=== PATIENT | male | born 1980 | race Caucasian/White ===

== ENCOUNTER 2016-12-23 01:30 | Emergency (ER) | payer OTHER ==
[~2016-12-23] VITALS: Ht 154.9 cm; Wt 83.8 kg
[~2016-12-23 01:30] MED LIST: MAGN250T3 PO; NRN600 PO
[2016-12-23 01:46] VITALS: TEMP 37; Ht 154.9 cm; Wt 83.8 kg
[2016-12-23] MEDS ORDERED: MAGNESIUM SULFATE 1GM / D5W 1 GM BAG IV STA (01:53)
[2016-12-23] MEDS ORDERED: SODIUM CHLORIDE 0.9% 1000ML 2,000 ML IV STA (01:53)
[2016-12-23] MEDS ORDERED: DiphenhydrAMINE HCL 50 MG/ML VIAL IV STA (01:53)
[2016-12-23] MEDS ORDERED: ONDANSETRON INJ 2 MG/ML 2 ML VIAL IV STA (01:53)
[2016-12-23] MEDS ORDERED: HYDROmorphone INJ 1 MG/ML SYR IV STA (01:53)
--- NOTE | 2016-12-23 01:58 | EMERGENCY ROOM VISIT NOTE ---
History Report prepared by Delma: Hamilton Ji Under the Supervision of: Dr. Nico Lucas M.D. First contact with patient: 01:48 Chief Complaint: HEADACHE Stated Complaint: SEVERE MIGRAINE History of Present Illness The patient is a 36 year old male who presents to the Emergency Room with complaints of persistent headache for the past 48 hours. The patient complains of nausea, vomiting, and a bright white light in his right eye field. He notes that this headache feels like his previous headaches. He has been getting Botox treatments which help, but notes that he does get headaches when he is due for a new shot which he currently is. He denies weakness in his arms or legs, trauma , injury, or fever at this time. Source of History: patient Onset: 48 hours Position: head Timing: other (persistent) Associated Symptoms: + nausea, + vomiting, No fevers Note: Other associated symptom: bright white light in vision field. Denies: weakness in arms or legs, trauma, or injury Review of Systems See HPI for pertinent positives & negatives. A total of 10 systems reviewed and were otherwise negative. Past Medical & Surgical Medical Problems: (1) GERD (gastroesophageal reflux disease) (2) History of migraine (3) History of orthopedic surgery (4) History of stomach ulcers (5) Intractable abdominal pain (6) Multiple fractures (7) PVC (premature ventricular contraction) Surgical Problems: (1) History of orthopedic surgery Family History Diabetes mellitus FH: cancer Gallbladder disease Hypertension Social History Smoking Status: Never Smoker Alcohol Use: none Drug Use: none Marital Status: in relationship Housing Status: lives with significant other Occupation Status: employed Current/Historical Medications Scheduled Doxepin Hcl (Doxepin), 75 MG PO HS Gabapentin (Gabapentin), 600 MG PO QID Magnesium (Magnesium 250 mg), 250 MG PO DAILY Verapamil HCl (Verapamil HCl ER), 180 MG PO BID Scheduled PRN Alprazolam (Alprazolam), 0.5 MG PO BID PRN for Panic Attack Allergies Coded Allergies: Prochlorperazine (Verified Adverse Reaction, Unknown, "MAKES ME FREAK OUT ", 12/23/16) Physical Exam Vital Signs Date Time Temp Pulse Resp B/P Pulse Ox O2 Delivery O2 Flow Rate FiO2 12/23/16 04:07 75 18 149/71 98 12/23/16 03:06 78 18 150/88 100 Room Air 12/23/16 01:46 37.0 98 18 144/79 99 Room Air Physical Exam GENERAL: Patient is well appearing and in mild distress. HEAD: No acute trauma, normocephalic atraumatic ENT: Mucous membranes moist, no nasal congestion. EYES: Equal/Reactive Bilaterally, No scleral icterus, Normal ROM NECK: No nuchal rigidity, no meningismus, trachea is midline, full ROM LUNGS: No dyspnea. Clear to auscultation and equal bilaterally. No wheeze, no rhonchi. HEART: Regular rate and rhythm. No murmurs, rubs, gallops appreciated. ABDOMEN: Soft, nontender, bowel sounds positive, no masses appreciated, no peritonitis. BACK: No midline tenderness, no CVA tenderness EXTREMITIES: Normal motion all extremities, no cyanosis, no edema. NEUROLOGIC: Awake, Alert, Oriented, no acute motor or sensory deficits, no focal weakness, cranial nerves grossly intact. SKIN: No rash, no jaundice, no diaphoresis. Medical Decision & Procedures Medications Administered Medications (Trade) Dose Ordered Sig/Clay Route Start Time Stop Time Status Last Admin Dose Admin Sodium Chloride (Nss 1000ml) 2,000 ml @ 999 mls/hr Q2H1M STAT IV 12/23/16 01:53 12/23/16 03:53 DC 12/23/16 02:13 999 MLS/HR Magnesium Sulfate (Magnesium Sulfate) 1 gm NOW STAT IV 12/23/16 01:53 12/23/16 01:55 DC 12/23/16 02:11 1 GM Dexamethasone Sodium Phosphate (Decadron Inj) 10 mg NOW ONCE IV 12/23/16 02:00 12/23/16 02:01 DC 12/23/16 02:11 10 MG Hydromorphone HCl (Dilaudid Inj) 1 mg NOW STAT IV 12/23/16 01:53 12/23/16 01:56 DC 12/23/16 02:11 1 MG Ondansetron HCl (Zofran Inj) 4 mg NOW STAT IV 12/23/16 01:53 12/23/16 01:56 DC 12/23/16 02:11 4 MG Diphenhydramine HCl (Benadryl Inj) 50 mg NOW STAT IV 12/23/16 01:53 12/23/16 01:56 DC 12/23/16 02:11 50 MG Hydromorphone HCl (Dilaudid Inj) 2 mg NOW STAT IV 12/23/16 02:49 12/23/16 02:50 DC 12/23/16 03:01 2 MG Lorazepam (Ativan Inj) 1 mg NOW STAT IV 12/23/16 03:53 12/23/16 03:54 DC 12/23/16 04:01 1 MG ED Course 0152: The patient was evaluated in room B7. A complete history and physical exam was performed. 0153: Ordered Benadryl Inj 50 mg IV, Zofran Inj 4 mg IV, Dilaudid Inj 1 mg IV, Magnesium Sulfate 1 gm IV, NSS 2000 ml @ 999 mls/hr IV. 0200: Ordered Decadron Inj 10 mg IV. 0249: Ordered Dilaudid Inj 2 mg IV. 0352: At this time, I reevaluated the patient and he says his headache is improving. He is ready to go home and requested medications to help him get some more sleep tonight. 0353: Ordered Ativan Inj 1 mg IV. 0356: Reevaluated the patient. Discussed results and discharge instructions: He verbalized understanding and agreement. The patient is ready for discharge. Medical Decision Differential: Headache, Migraine, Cluster Headache, Seizure, Meningitis, Sinusitis, CO exposure, ICH/SAH, Infectious, Tumor, Sinus Thrombosis, Arterial Dissection, amongst other pathologies entertained. 36 yr old male arrives with complaint of his typical migraine symptoms. Admits that he is to have Botox injections in 36 hours. Given large doses of multiple medications which it appears he has many times before. Feeling improved and will try getting some sleep at home. He is awake, alert and oriented answering questions. Stable throughout ED stay. No evidence dissection, infection, co, bleed, tumor. No neuro deficits. Extensive work-ups in past. Impression Primary Impression: Headache Additional Impression: Migraine Scribe Attestation The scribe's documentation has been prepared under my direction and personally reviewed by me in its entirety. I confirm that the note above accurately reflects all work, treatment, procedures, and medical decision making performed by me. Departure Information Dispostion Home / Self-Care Referrals No Doctor, Assigned (PCP) Forms HOME CARE DOCUMENTATION FORM, IMPORTANT VISIT INFORMATION Patient Instructions ED Headache Migraine, My [facility] Problem Qualifiers Primary Impression: Headache Headache type: unspecified Headache chronicity pattern: acute headache Intractability: not intractable Qualified Codes: R51 - Headache Additional Impression: Migraine Migraine type: unspecified Status migrainosus presence: with status migrainosus Intractability: not intractable Qualified Codes: G43.901 - Migraine, unspecified, not intractable, with status migrainosus
[2016-12-23] MEDS ORDERED: DEXAMETHASONE SOD INJ 10 MG/ML VIAL IV ONE (02:00)
[2016-12-23] MEDS ORDERED: HYDROmorphone INJ 2 MG/ML SYR/VIAL IV STA (02:49)
[2016-12-23] MEDS ORDERED: LORAZEPAM 2 MG/ML 1 ML VIAL IV STA (03:53)
[2016-12-23 04:07] VITALS: BP 149/71; PULSE 75; O2SAT 98
[2017-01-03] MEDS ORDERED: ONDA4TAB10 SL (17:47)
== END 2016-12-23 04:07 | disposition home or self-care (01) ==
LOC: C.EDB 01:32
DX: G43.901 Migraine, unspecified, not intractable, with status migrainosus (principal); K21.9 Gastro-esophageal reflux disease without esophagitis; Z83.79 Family history of other diseases of the digestive system; Z79.899 Other long term (current) drug therapy

== ENCOUNTER 2017-01-02 00:39 | Emergency (ER) | payer OTHER ==
[~2017-01-02] VITALS: Ht 180.3 cm; Wt 82.4 kg
[~2017-01-02 00:39] MED LIST changes: -NRN600 PO
[2017-01-02 00:47] VITALS: TEMP 37; Ht 180.3 cm; Wt 82.4 kg
[2017-01-02] MEDS ORDERED: PROMETHAZINE HCL INJ 25 MG in SODIUM CHLORIDE 0.9% 50ML 50 ML IV STA (00:56)
[2017-01-02] MEDS ORDERED: SODIUM CHLORIDE 0.9% 1000ML 1,000 ML IV STA (00:56)
[2017-01-02] MEDS ORDERED: HYDROmorphone INJ 2 MG/ML SYR/VIAL IV STA ×2 (00:56→02:09)
[2017-01-02] MEDS ORDERED: MAGNESIUM SULFATE 1GM / D5W 1 GM BAG IV STA (00:56)
[2017-01-02] MEDS ORDERED: KETOROLAC TROMETHAMINE 30 MG/ML VIAL IV STA (00:56)
[2017-01-02] MEDS ORDERED: HYDROmorphone INJ 1 MG/ML SYR ONE ×2 (01:01→02:16)
[2017-01-02] MEDS ORDERED: MULT-506 PO (01:33)
[2017-01-02] MEDS ORDERED: LORAZEPAM 2 MG/ML 1 ML VIAL IV STA (02:09)
[2017-01-02] MEDS ORDERED: ONDANSETRON HOME PACK 4MG OD TAB PO ONE (02:45)
[2017-01-02 02:49] VITALS: BP 155/86; PULSE 97; O2SAT 96
--- NOTE | 2017-01-02 03:43 | EMERGENCY ROOM VISIT NOTE ---
History First contact with patient: 00:48 Chief Complaint: HEADACHE Stated Complaint: MIGRAINE SINCE SATURDAY History of Present Illness The patient is a 36 year old male who presents to the Emergency Room with complaints of migraine for the past 2 days described as throbbing, ranging in severity currently 8 out of 10 throughout the temporal region similar to prior. Patient receives Botox injection. He follows with Dr. Lombardo. Headache is similar to prior. Patient denies sudden onset of headache, fever, chills, neck stiffness, numbness, tingling, weakness, chest pain, dyspnea or any other medical complaints. Patient is well-known to this ER for frequent migraine visits. Review of Systems See HPI for pertinent positives & negatives. A total of 10 systems reviewed and were otherwise negative. Past Medical/Surgical History Medical Problems: (1) GERD (gastroesophageal reflux disease) (2) History of migraine (3) History of orthopedic surgery (4) History of stomach ulcers (5) Intractable abdominal pain (6) Multiple fractures (7) PVC (premature ventricular contraction) Surgical Problems: (1) History of orthopedic surgery Family History Diabetes mellitus FH: cancer Gallbladder disease Hypertension Social History Smoking Status: Never Smoker Alcohol Use: none Drug Use: none Marital Status: in relationship Housing Status: lives with significant other Occupation Status: employed Current/Historical Medications Scheduled Doxepin Hcl (Doxepin), 75 MG PO HS Multivitamin (Multivitamin), 1 TAB PO DAILY Verapamil HCl (Verapamil HCl ER), 180 MG PO BID Scheduled PRN Alprazolam (Alprazolam), 0.5 MG PO BID PRN for Panic Attack Allergies Coded Allergies: Tramadol (Unverified Allergy, Unknown, headache, 01/02/17) Prochlorperazine (Verified Adverse Reaction, Unknown, "MAKES ME FREAK OUT ", 01/02/17) Physical Exam Vital Signs Date Time Temp Pulse Resp B/P Pulse Ox O2 Delivery O2 Flow Rate FiO2 01/02/17 02:49 97 16 155/86 96 01/02/17 02:25 97 16 147/93 98 Room Air 01/02/17 00:47 37.0 122 18 134/83 95 Room Air Pain Rating (0-10): 4.0 Physical Exam VITALS: Vitals are noted on the nurse's note and reviewed by myself. Vital signs stable. GENERAL: Pleasant male, in no acute distress, nondiaphoretic, well-developed well-nourished. SKIN: The skin was without rashes, erythema, edema, or bruising. There is no tenting of the skin. Capillary reflex less than 2 seconds. HEAD: Normocephalic atraumatic. EARS: External auditory canals clear, tympanic membranes pearly sandoval without erythema or effusion bilaterally. EYES: Pupils equal round and reactive to light and accommodation. Conjunctivae without injection, sclerae without icterus. Extraocular movements intact. NOSE: Patent, turbinates without inflammation or discharge. No sinus tenderness. MOUTH: Mucous membranes moist. Pharynx without erythema or exudate. Uvula midline. Airway patent. Tongue does not deviate. NECK: Supple without nuchal rigidity. No lymphadenopathy. No thyromegaly. Cervical spine is nontender. No JVD. HEART: Regular rate and rhythm without murmurs gallops or rubs. LUNGS: Clear to auscultation bilaterally without wheezes, rales or rhonchi. No dullness to percussion. No retractions or accessory muscle use. ABDOMEN: Positive bowel sounds x 4. Normal tympanic percussion. Soft, nontender, without masses or organomegaly. Tucker sign negative. No guarding or rebound tenderness. MUSCULOSKELETAL: No muscle atrophy, erythema, or edema noted. NEURO: Patient was alert and oriented to person place and time. Normal sensation to light and sharp touch. No focal neurological deficits. Cranial nerves II through XII grossly intact. No pronator drift. Cerebellar exam intact Medical Decision & Procedures Medications Administered Medications (Trade) Dose Ordered Sig/Clay Route Start Time Stop Time Status Last Admin Dose Admin Magnesium Sulfate 1 gm 1 gm NOW STAT IV 01/02/17 00:56 01/02/17 00:58 DC 01/02/17 01:11 1 GM Promethazine HCl/ Sodium Chloride (Phenergan Inj/ Nss 50ml) 51 ml @ 204 mls/hr NOW STAT IV 01/02/17 00:56 01/02/17 01:10 DC 01/02/17 01:24 204 MLS/HR Ketorolac Tromethamine 30 mg 30 mg NOW STAT IV 01/02/17 00:56 01/02/17 00:58 DC 01/02/17 01:10 30 MG Sodium Chloride (Nss 1000ml) 1,000 ml @ 999 mls/hr Q1H1M STAT IV 01/02/17 00:56 01/02/17 01:56 DC 01/02/17 01:10 999 MLS/HR Hydromorphone HCl (Dilaudid Inj) 1 mg STK-MED ONCE .ROUTE 01/02/17 01:01 01/02/17 01:04 DC 01/02/17 01:11 1 MG Lorazepam (Ativan Inj) 1 mg NOW STAT IV 01/02/17 02:09 01/02/17 02:10 DC 01/02/17 02:21 1 MG Hydromorphone HCl (Dilaudid Inj) 1 mg STK-MED ONCE .ROUTE 01/02/17 02:16 01/02/17 02:18 DC 01/02/17 02:20 1 MG Ondansetron HCl (ZOFRAN ODT 4MG Home Pack) 1 homepack UD ONCE PO 01/02/17 02:45 01/02/17 02:46 DC 01/02/17 02:48 1 HOMEPACK ED Course Prior records/ancillary studies reviewed. Additional history obtained from family. Triage Nursing notes reviewed. The patient's history was concerning for headache. Differential diagnosis: Etiologies such as migraine headache, meningitis, sinusitis, CO exposure, ICH, SAH, infection, tumor, headache, sinus thrombosis, arterial dissection, as well as others were entertained. Physical examination findings: As above. Non-focal. ER treatment provided: Dilaudid, magnesium, Toradol per patient standard protocol On reassessment the patient felt better. Diagnostics interpreted by me: Deferred This appears to be consistent with migraine. Patient felt much better after being medicated as above. He was neurovascularly and neurologically intact. No deficits on exam. He was advised to follow-up with his neurologist in a few days or here in the ER sooner for headache, fevers, weakness, neck stiffness, worsening signs or symptoms or as needed.. By the evaluation outlined above emergent etiologies such as meningitis, sinusitis, CO exposure, ICH, SAH, infection, temporal arteritis, tumor, sinus thrombosis, arterial dissection, as well as others were deemed relatively unlikely. The pt informed about the findings as listed above. All questions were answered and pleased with the treatment. Return instructions were outlined and the patient was discharged in stable condition. Outpatient prescription management: zofran Referral: The patient was referred back to their primary care physician for follow-up in 2 to 3 days for a recheck of the current condition. Medical Decision As above Impression Primary Impression: Migraine Departure Information Dispostion Home / Self-Care Condition GOOD Referrals Fabienne Fuller PA-C (PCP) Forms HOME CARE DOCUMENTATION FORM, IMPORTANT VISIT INFORMATION Patient Instructions Headaches Migraines and Cluster, My [facility] Additional Instructions DO NOT drive, drink alcohol, operate machinery, or perform dangerous activities today. You were given medications in the ER that can affect your ability to safely function or operate a vehicle. Rest today in a quiet, peaceful, dark environment and get a full 8-10 hrs of sleep tonight. Avoid loud noises, smoke/smoking, alcohol, bright lights, stress, or physical exertion today to minimize the chance the headache may return. Continue current medications. Ibuprofen(Motrin, Advil) may be used for fever or pain. Use 600mg every six hours as needed. Take with food. Avoid using more than 2400mg in a 24 hour period. Do not use 2400mg per day for more than three consecutive days without physician direction. Prolonged inappropriate use can lead to stomach upset or ulcers. (AND/OR) Acetaminophen(Tylenol) may be used for fever or pain. Use 1000mg every six hours as needed. Avoid using more than 3000mg in a 24 hour period. Return to the ER for passing out, worsening headache, vision problems, neck stiffness/pain, fevers, vomiting, worsening of your condition, or as needed. Follow up with your primary physician and/or a neurologist in 2-3 days for a recheck of your current condition. Problem Qualifiers Primary Impression: Migraine Migraine type: without aura Status migrainosus presence: without status migrainosus Intractability: not intractable Qualified Codes: G43.009 - Migraine without aura, not intractable, without status migrainosus
[2017-01-02] MEDS ORDERED: VRPSR180 PO (17:40)
[2017-01-02] MEDS ORDERED: DXP/75 PO (17:40)
[2017-01-02] MEDS ORDERED: ALPR-411 PO (18:07)
[2017-01-02] MEDS ORDERED: MAGN250T9 PO (21:53)
[2017-01-02] MEDS ORDERED: ELET40TA PO (21:53)
[2017-01-02] MEDS ORDERED: LRS10 PO (21:53)
[2017-01-02] MEDS ORDERED: ONDA4TAB10 SL (21:55)
[2017-01-03] MEDS ORDERED: OSEL75CA12 PO (01:46)
[2017-01-03] MEDS ORDERED: ONDA4TAB10 SL (17:47)
== END 2017-01-02 02:50 | disposition home or self-care (01) ==
LOC: C.EDB 00:40 → C.EDA 02:50
DX: G43.909 Migraine, unspecified, not intractable, without status migrainosus (principal); K21.9 Gastro-esophageal reflux disease without esophagitis; Z87.81 Personal history of (healed) traumatic fracture; Z87.19 Personal history of other diseases of the digestive system; Z88.8 Allergy status to other drugs, medicaments and biological substances; Z83.3 Family history of diabetes mellitus; Z80.9 Family history of malignant neoplasm, unspecified; Z83.79 Family history of other diseases of the digestive system; Z82.49 Family history of ischemic heart disease and other diseases of the circulatory system

== ENCOUNTER 2017-01-02 21:09 | Observation (INO) | payer OTHER ==
[~2017-01-02] VITALS: Ht 180.3 cm; Wt 83.7 kg
[~2017-01-02 21:09] MED LIST changes: +ALPR-411 PO; +DXP/75 PO; +MULT-506 PO; +VRPSR180 PO
[2017-01-02] MEDS ORDERED: ONDANSETRON INJ 2 MG/ML 2 ML VIAL IV STA (21:51)
[2017-01-02] MEDS ORDERED: MAGNESIUM SULFATE 1GM / D5W 1 GM BAG IV STA (21:51)
[2017-01-02] MEDS ORDERED: HYDROmorphone INJ 1 MG/ML SYR IV STA ×2 (21:51→23:36)
[2017-01-02] MEDS ORDERED: CEFTRIAXONE SOD INJ 2,000 MG in DEXTROSE 5% 50ML 50 ML IV STA (21:51)
[2017-01-02] MEDS ORDERED: MAGN250T9 PO (21:53)
[2017-01-02] MEDS ORDERED: ELET40TA PO (21:53)
[2017-01-02] MEDS ORDERED: LRS10 PO (21:53)
[2017-01-02] MEDS ORDERED: ONDA4TAB10 SL (21:55)
[2017-01-02] MEDS ORDERED: DEXAMETHASONE SOD INJ 10 MG/ML VIAL IV ONE (22:00)
--- NOTE | 2017-01-02 22:20 | DIAGNOSTIC IMAGING REPORT ---
CHEST ONE VIEW PORTABLE HISTORY: Sepsis COMPARISON: Chest 06/05/2016. FINDINGS: The lungs are clear. Cardiac silhouette is normal in size. No pleural effusions. No pneumothorax. IMPRESSION: No acute process. Electronically signed by: Claudio Mccormack M.D. 01/02/2017 10:18 PM Dictated Date/Time: 01/02/2017 10:17 PM
[2017-01-02] MEDS ORDERED: SODIUM CHLORIDE 0.9% 1000ML 1,000 ML IV STA ×2 (22:27)
[2017-01-02] MEDS ORDERED: OSELTAMIVIR PHOSPHATE 75 MG CAP PO STA (22:44)
[2017-01-02 22:58] LABS: BASO % 0.4 %; BASO ABS # 0.01 K/uL (0-0.2); COMPLETE YES; LYMPH % 12.8 %; LYMPH ABS # 0.36 K/uL (1.2-3.4); MEAN CELL VOLUME 86.1 fL (80-100); MEAN CORPUSCULAR HEMOGLOBIN 31.6 pg (25-34); MEAN CORPUSCULAR HGB CONC 36.7 g/dl (32-36); MEAN PLATELET VOLUME 10.1 fL (7.4-10.4); MONO % 22.1 %; NEUT % 64.7 %; PLATELET COUNT 253 K/uL (130-400); RED BLOOD COUNT 4.53 M/uL (4.7-6.1); WHITE BLOOD COUNT 2.81 K/uL (4.8-10.8)
[2017-01-02 23:09] LABS: INR 1.1 (0.9-1.1); PARTIAL THROMBOPLASTIN RATIO 1.1; PROTHROMBIN TIME (PATIENT) 11.6 SECONDS (9.0-12.0)
[2017-01-02 23:13] LABS: BUN/CREATININE RATIO 10.6 (10-20); CALCIUM 8.8 mg/dl (8.5-10.1); POTASSIUM 3.6 mmol/L (3.5-5.1)
[2017-01-02 23:16] LABS: ALB/GLOB RATIO 1.2 (0.9-2)
[2017-01-02 23:58] LABS: LYME DISEASE AB IGG NEG (NEG); LYME DISEASE AB IGM NEG (NEG)
[2017-01-03] VITALS (8 sets, daily range): BP systolic 127–163; BP diastolic 67–83; PULSE 57–87; TEMP 36.5–37.2; O2SAT 94–99; Ht 180.3 cm; Wt 83.7 kg
[2017-01-03 00:37] LABS: MANUAL MICROSCOPIC REQUIRED? NO; REVIEW REQ? NO; URINE APPEARANCE CLEAR (CLEAR); URINE BILIRUBIN NEG (NEG); URINE COLOR YELLOW; URINE EPITHELIAL CELL AUTO 0-5 /lpf (0-5); URINE NITRITE NEG (NEG); URINE SPECIFIC GRAVITY 1.004 (1.000-1.030); UROBILINOGEN NEG (NEG); ZZUR CULT IF INDIC CLEAN CATCH NO
[2017-01-03 01:19] LABS: CSF APPEARANCE CLEAR; CSF COLOR COLORLESS; CSF XANTHOCHROMIC NO XANTHOCHROMIA
[2017-01-03 01:30] LABS: CSF CHEMISTRY TUBE # 2
[2017-01-03 01:37] LABS: CSF TOTAL PROTEIN 45.1 mg/dl (15.0-45.0)
[2017-01-03] MEDS ORDERED: OSEL75CA12 PO (01:46)
--- NOTE | 2017-01-03 01:46 | EMERGENCY ROOM VISIT NOTE ---
History First contact with patient: 21:47 Chief Complaint: HEADACHE Stated Complaint: WORSEING MIGRAINE FROM LAST ER VISIT History of Present Illness The patient is a 36 year old male who presents to the Emergency Room with complaints of migraine and now with neck pain for the past 2 days described as throbbing, ranging in severity currently 9 out of 10 throughout the temporal region has been increasing in severity. Patient was seen here last night who states he felt much better but then the headache came back again today. Patient receives Botox injection. He follows with Dr. Lombardo. Patient also complains of vision problems with his right eye, no injury to the eye. Patient denies sudden onset of headache, neck stiffness, loss of vision, numbness, tingling, weakness, chest pain, dyspnea or any other medical complaints. Patient is well-known to this ER for frequent migraine visits. Patient now complains of subjective fever and chills. MAXIMUM TEMPERATURE 101 at home. Review of Systems See HPI for pertinent positives & negatives. A total of 10 systems reviewed and were otherwise negative. Past Medical/Surgical History Medical Problems: (1) GERD (gastroesophageal reflux disease) (2) History of migraine (3) History of orthopedic surgery (4) History of stomach ulcers (5) Intractable abdominal pain (6) Multiple fractures (7) PVC (premature ventricular contraction) Surgical Problems: (1) History of orthopedic surgery Family History Diabetes mellitus FH: cancer Gallbladder disease Hypertension Social History Smoking Status: Never Smoker Alcohol Use: none Drug Use: none Marital Status: in relationship Housing Status: lives with significant other Occupation Status: employed Current/Historical Medications Scheduled Doxepin Hcl (Doxepin), 75 MG PO HS Magnesium (Magnesium), 250 MG PO DAILY Multivitamin (Multivitamin), 1 TAB PO DAILY Oseltamivir (Tamiflu), 75 MG PO BID Verapamil HCl (Verapamil HCl ER), 180 MG PO BID Scheduled PRN Alprazolam (Alprazolam), 0.5 MG PO BID PRN for Panic Attack Baclofen (Baclofen), 10 MG PO TID PRN for Back Pain Eletriptan Hydrobromide (Relpax), 40 MG PO UD PRN for Migraine Ondasetron Odt (Zofran Odt), 4 MG SL Q6H PRN for Nausea Allergies Coded Allergies: Tramadol (Unverified Allergy, Unknown, headache, 01/02/17) Prochlorperazine (Verified Adverse Reaction, Unknown, "MAKES ME FREAK OUT ", 01/02/17) Physical Exam Vital Signs Date Time Temp Pulse Resp B/P Pulse Ox O2 Delivery O2 Flow Rate FiO2 01/03/17 01:56 107 18 148/78 100 Room Air 01/03/17 01:19 81 18 145/76 95 Room Air 01/03/17 00:02 90 18 146/76 97 Room Air 01/02/17 22:30 95 18 156/89 95 Room Air 01/02/17 22:13 94 Room Air 01/02/17 21:48 108 18 153/102 97 Room Air 01/02/17 21:17 37.5 112 20 160/99 96 Room Air Right Eye Acuity: 20/200 Left Eye Acuity: 20/20 Physical Exam VITALS: Vitals are noted on the nurse's note and reviewed by myself. Vital signs stable. GENERAL: White male, in no acute distress, nondiaphoretic, well-developed well- nourished. SKIN: The skin was without rashes, erythema, edema, or bruising. There is no tenting of the skin. Capillary reflex less than 2 seconds. HEAD: Normocephalic atraumatic. EARS: External auditory canals clear, tympanic membranes pearly sandoval without erythema or effusion bilaterally. EYES: Pupils equal round and reactive to light and accommodation. Conjunctivae without injection, sclerae without icterus. Extraocular movements intact. NOSE: Patent, turbinates without inflammation or discharge. No sinus tenderness. MOUTH: Mucous membranes moist. Pharynx without erythema or exudate. Uvula midline. Airway patent. Tongue does not deviate. NECK: Supple without nuchal rigidity. No lymphadenopathy. No thyromegaly. Cervical spine is nontender. No JVD. HEART: Regular rate and rhythm without murmurs gallops or rubs. LUNGS: Clear to auscultation bilaterally without wheezes, rales or rhonchi. No dullness to percussion. No retractions or accessory muscle use. ABDOMEN: Positive bowel sounds x 4. Normal tympanic percussion. Soft, nontender, without masses or organomegaly. Tucker sign negative. No guarding or rebound tenderness. MUSCULOSKELETAL: No muscle atrophy, erythema, or edema noted. NEURO: Patient was alert and oriented to person place and time. Normal sensation to light and sharp touch. No focal neurological deficits. Cranial nerves II through XII grossly intact. No pronator drift. Cerebellar exam intact. 5 over 5 strength throughout Medical Decision & Procedures Laboratory Results 01/02/17 22:20 Red Blood Count 4.53, Mean Corpuscular Volume 86.1, Mean Corpuscular Hemoglobin 31.6, Mean Corpuscular Hemoglobin Concent 36.7, Mean Platelet Volume 10.1, Neutrophils (%) (Auto) 64.7, Lymphocytes (%) (Auto) 12.8, Monocytes (%) (Auto) 22.1, Eosinophils (%) (Auto) 0.0, Basophils (%) (Auto) 0.4, Neutrophils # (Auto ) 1.82, Lymphocytes # (Auto) 0.36, Monocytes # (Auto) 0.62, Eosinophils # (Auto ) 0.00, Basophils # (Auto) 0.01 01/02/17 22:20 Test 01/02/17 00:00 01/02/17 22:03 01/02/17 22:20 01/02/17 22:23 Urine Color YELLOW Urine Appearance CLEAR (CLEAR) Urine pH 6.0 (4.5-7.5) Urine Specific [place] 1.004 (1.000-1.030) Urine Protein NEG (NEG) Urine Glucose (UA) NEG (NEG) Urine Ketones NEG (NEG) Urine Occult Blood NEG (NEG) Urine Nitrite NEG (NEG) Urine Bilirubin NEG (NEG) Urine Urobilinogen NEG (NEG) Urine Leukocyte Esterase NEG (NEG) Urine WBC (Auto) 0 /hpf (0-5) Urine RBC (Auto) 0-4 /hpf (0-4) Urine Hyaline Casts (Auto) 0 /lpf (0-5) Urine Epithelial Cells (Auto) 0-5 /lpf (0-5) Urine Bacteria (Auto) NEG (NEG) Influenza Type A Antigen POS for Influ A (NEG) Influenza Type B Antigen Neg for Influ B (NEG) White Blood Count 2.81 K/uL (4.8-10.8) Red Blood Count 4.53 M/uL (4.7-6.1) Hemoglobin 14.3 g/dL (14.0-18.0) Hematocrit 39.0 % (42-52) Mean Corpuscular Volume 86.1 fL (80-100) Mean Corpuscular Hemoglobin 31.6 pg (25-34) Mean Corpuscular Hemoglobin Concent 36.7 g/dl (32-36) Platelet Count 253 K/uL (130-400) Mean Platelet Volume 10.1 fL (7.4-10.4) Neutrophils (%) (Auto) 64.7 % Lymphocytes (%) (Auto) 12.8 % Monocytes (%) (Auto) 22.1 % Eosinophils (%) (Auto) 0.0 % Basophils (%) (Auto) 0.4 % Neutrophils # (Auto) 1.82 K/uL (1.4-6.5) Lymphocytes # (Auto) 0.36 K/uL (1.2-3.4) Monocytes # (Auto) 0.62 K/uL (0.11-0.59) Eosinophils # (Auto) 0.00 K/uL (0-0.5) Basophils # (Auto) 0.01 K/uL (0-0.2) RDW Standard Deviation 39.6 fL (36.4-46.3) RDW Coefficient of Variation 12.5 % (11.5-14.5) Immature Granulocyte % (Auto) 0.0 % Immature Granulocyte # (Auto) 0.00 K/uL (0.00-0.02) Prothrombin Time 11.6 SECONDS (9.0-12.0) Prothromb Time International Ratio 1.1 (0.9-1.1) Activated Partial Thromboplast Time 28.9 SECONDS (21.0-31.0) Partial Thromboplastin Ratio 1.1 Anion Gap 7.0 mmol/L (3-11) Est Creatinine Clear Calc Drug Dose 107.7 ml/min Estimated GFR () 110.9 Estimated GFR (Non- 95.7 BUN/Creatinine Ratio 10.6 (10-20) Calcium Level 8.8 mg/dl (8.5-10.1) Total Bilirubin 0.4 mg/dl (0.2-1) Aspartate Amino Transf (AST/SGOT) 19 U/L (15-37) Alanine Aminotransferase (ALT/SGPT) 15 U/L (12-78) Alkaline Phosphatase 65 U/L (45-117) Total Protein 7.6 gm/dl (6.4-8.2) Albumin 4.2 gm/dl (3.4-5.0) Globulin 3.4 gm/dl (2.5-4.0) Albumin/Globulin Ratio 1.2 (0.9-2) Lyme Disease IgG Antibody NEG (NEG) Lyme Disease IgM Antibody NEG (NEG) Bedside Lactic Acid Venous 0.64 mmol/L (0.90-1.70) Test 01/02/17 23:59 CSF Color COLORLESS CSF Appearance CLEAR CSF WBC 2 /uL (0-5) CSF RBC 0 /uL (0) CSF Xanthrochromic NO XANTHOCHROMIA CSF Cell Count Tube # 4 CSF Chemistry Tube # 2 CSF Glucose 55 mg/dl (40-70) CSF Total Protein 45.1 mg/dl (15.0-45.0) Medications Administered Medications (Trade) Dose Ordered Sig/Clay Route Start Time Stop Time Status Last Admin Dose Admin Dexamethasone Sodium Phosphate 10 mg 10 mg NOW ONCE IV 01/02/17 22:00 01/02/17 22:01 DC 01/02/17 22:29 10 MG Ceftriaxone Sodium/Dextrose (Rocephin Inj/D5 50ml) 70 ml @ 100 mls/hr ONE STAT IV 01/02/17 21:51 01/02/17 22:32 DC 01/02/17 22:29 100 MLS/HR Hydromorphone HCl (Dilaudid Inj) 1 mg NOW STAT IV 01/02/17 21:51 01/02/17 21:54 DC 01/02/17 22:28 1 MG Magnesium Sulfate (Magnesium Sulfate) 1 gm NOW STAT IV 01/02/17 21:51 01/02/17 21:54 DC 01/02/17 23:12 1 GM Ondansetron HCl 4 mg 4 mg NOW STAT IV 01/02/17 21:51 01/02/17 21:54 DC 01/02/17 22:28 4 MG Sodium Chloride 1,000 ml @ 999 mls/hr Q1H1M STAT IV 01/02/17 22:27 01/02/17 23:27 DC 01/02/17 22:35 999 MLS/HR Sodium Chloride (Nss 1000ml) 1,000 ml @ 125 mls/hr Q8H STAT IV 01/02/17 22:27 01/03/17 06:26 01/02/17 22:27 125 MLS/HR Oseltamivir Phosphate (Tamiflu Cap) 75 mg NOW STAT PO 01/02/17 22:44 01/02/17 22:45 DC 01/02/17 23:49 75 MG Hydromorphone HCl (Dilaudid Inj) 1 mg NOW STAT IV 01/02/17 23:36 01/02/17 23:37 DC 01/02/17 23:48 1 MG Procedure Lumbar Puncture Indication: r/o meningitis. Verbal consent was obtained after the risks and benefits were explained, including but not limited to headache, bleeding/clotting, scarring, infection, pain, and bone/joint/nerve damage. At this time, the risks of the procedure are less than the risks of NOT performing the procedure. A time out was taken and the correct patient and site identified. The patient was placed in the sitting position and the back was prepped with betadine and draped in the standard fashion. The L3 intervertebral space was identified, anesthetized locally with 1 % lidocaine without epinephrine, and the 22ga spinal needle was inserted through the skin with the bevel parallel to the dural fibers. The needle was carefully advanced into the lumbar cistern and 4 tubes of clear CSF was obtained. The stylet was replaced and the needle was removed. A bandaid was placed and the patient was placed in the supine position. The patient tolerated the procedure well and there were no complications. ED Course Prior records/ancillary studies reviewed. Additional history obtained from family. Triage Nursing notes reviewed. The patient's history was concerning for headache. Differential diagnosis: Etiologies such as migraine headache, meningitis, sinusitis, CO exposure, ICH, SAH, infection, tumor, headache, sinus thrombosis, arterial dissection, as well as others were entertained. Physical examination findings: As above. Non-focal. ER treatment provided: Rocephin, Decadron, Dilaudid, IV fluids On reassessment the patient felt better. Diagnostics interpreted by me: ECG: Normal sinus, normal intervals, no acute ST-T wave changes. Impression normal sinus rhythm interpreted by myself The labs revealed + influenza, A negative CSF. No cytosis Imaging studies: CT HEAD: Comparison 02/28/16. No acute intracranial finding. Imaged sinuses and mastoids well aerated. Radiologist: Gilbert Cason M.D. [~ rep ct add3]] CHEST ONE VIEW PORTABLE HISTORY: Sepsis COMPARISON: Chest 06/05/2016. FINDINGS: The lungs are clear. Cardiac silhouette is normal in size. No pleural effusions. No pneumothorax. IMPRESSION: No acute process. I consulted the hospitalist, . She will evaluate the patient for possible admission. Please see their dictation for further information regarding the treatment plan. This appears to be consistent with influenza with migraine. Patient was medicated multiple times with pain meds and still was in a severe amount of pain. He will be evaluated by medicine for possible admission. Patient symptoms of the fever started today. He is within the window to treat. Patient had a negative lumbar puncture. No red blood cells concerning for intracranial bleed. No white blood cells concerning for meningitis. By the evaluation outlined above emergent etiologies such as meningitis, sinusitis, CO exposure, ICH, SAH, temporal arteritis, tumor, sinus thrombosis, arterial dissection, as well as others were deemed relatively unlikely. The pt informed about the findings as listed above. All questions were answered and pleased with the treatment. Return instructions were outlined and the patient was discharged in stable condition. Outpatient prescription management: Tamiflu Referral: The patient was referred back to their neurologist for follow-up in 2 to 3 days for a recheck of the current condition. Case reviewed with my attending Medical Decision As above Impression Primary Impression: Influenza A Additional Impression: Intractable migraine Departure Information Dispostion Being Evaluated By Hospitalist Condition FAIR Prescriptions Oseltamivir (Tamiflu) 75 Mg Cap 75 MG PO BID for 5 Days, #10 CAP Prov: Heidy Ramos .GLORIA 01/03/17 Referrals Fabienne Fuller PA-C (PCP) Patient Instructions My [facility] Problem Qualifiers
[2017-01-03] MEDS ORDERED: LORAZEPAM 2 MG/ML 1 ML VIAL IV STA (01:58)
[2017-01-03] MEDS ORDERED: OXYCODONE IR HOME PACK PO ONE (02:00)
[2017-01-03] MEDS ORDERED: ONDANSETRON HOME PACK 4MG OD TAB PO ONE (02:00)
[2017-01-03] MEDS ORDERED: ONDANSETRON INJ 2 MG/ML 2 ML VIAL ONE (03:15)
[2017-01-03] MEDS ORDERED: ACETAMINOPHEN 325 MG TAB PO PRN (03:15)
[2017-01-03] MEDS ORDERED: POLYETHYLENE (MIRALAX) 17 GM PACK PO PRN (03:15)
[2017-01-03] MEDS: ONDANSETRON INJ 2 MG/ML 2 ML VIAL IV SCH ×3 (03:15→16:38)
[2017-01-03] MEDS ORDERED: SODIUM CHLORIDE 0.9% 1000ML 1,000 ML IV SCH (03:26)
[2017-01-03] MEDS ORDERED: BACLOFEN 10 MG TAB PO PRN (03:30)
[2017-01-03] MEDS ORDERED: ALPRAZOLAM 0.5 MG TAB PO PRN (03:30)
[2017-01-03] MEDS ORDERED: HYDROmorphone HCL 0.5MG/ML 50 ML CASSETTE IV PRN (03:30)
[2017-01-03] MEDS ORDERED: NALOXONE HCL 0.4 MG/1 ML VIAL/CARP IV PRN (03:30)
--- NOTE | 2017-01-03 03:55 | History and Physical ---
History & Physical Date & Time of Service: Jan 03, 2017 at 03:30 Chief Complaint: Worseing Migraine From Last Er Visit Primary Care Physician: Fabienne Fuller PA-C History of Present Illness Source: patient 36 yoM with long history of migraines with visual aura presents to the ER tonight with intractable migraine for the past several days along with fevers and cough. He was positive for flu and an LP was performed in light of neck pain and his severe headache with fever. CSF studies were normal with a negative gram stain and final culture pending. He reports some white spots in his R eye visual field that are improving. He states the headache in on the right half of his head, and he receives Botox injections regularly for this as an outpatient. He has chronic neck pain from degenerative disc disease but denies any radiculopathy or numbness and tingling at this time, and he is able to ambulate without difficulty. He states his fevers, chills and sore throat for the past two days. His has been ill for 3 weeks. The patient states that he sees Dr. Lombardo for Neurology and he has tried every drug on the market; he states that Imitrex injections make him feel as though he is having a heart attack. After multiple doses of dilaudid in the ER, the patient still has significant pain with some vomiting from the pain. Agreed to admit the patient for pain control. Past Medical/Surgical History Medical Problems: (1) GERD (gastroesophageal reflux disease) Status: Chronic (2) History of migraine Status: Chronic (3) History of orthopedic surgery Status: Chronic (4) History of stomach ulcers Status: Resolved (5) Intractable abdominal pain Status: Chronic (6) Multiple fractures Status: Resolved (7) PVC (premature ventricular contraction) Status: Chronic Surgical Problems: (1) History of orthopedic surgery Status: Resolved Family History Diabetes mellitus FH: cancer Gallbladder disease Hypertension Social History Smoking Status: Never Smoker Smokeless Tobacco Use: No Alcohol Use: none Drug Use: none Marital Status: , in relationship Housing status: lives with significant other 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) Immunizations History of Influenza Vaccine: Yes Influenza Vaccine Date: Jun 11, 2016 History of Tetanus Vaccine?: Yes Tetanus Immunization Date: Jul 25, 2005 History of Pneumococcal: No History of Hepatitis B Vaccine: Unknown Multi-Drug Resistant Organisms History of MDRO: No Allergies Coded Allergies: Tramadol (Unverified Allergy, Unknown, headache, 01/02/17) Prochlorperazine (Verified Adverse Reaction, Unknown, "MAKES ME FREAK OUT ", 01/02/17) Home Medications Scheduled Doxepin Hcl (Doxepin), 75 MG PO HS Magnesium (Magnesium), 250 MG PO DAILY Multivitamin (Multivitamin), 1 TAB PO DAILY Oseltamivir (Tamiflu), 75 MG PO BID Verapamil HCl (Verapamil HCl ER), 180 MG PO BID Scheduled PRN Alprazolam (Alprazolam), 0.5 MG PO BID PRN for Panic Attack Baclofen (Baclofen), 10 MG PO TID PRN for Back Pain Eletriptan Hydrobromide (Relpax), 40 MG PO UD PRN for Migraine Ondasetron Odt (Zofran Odt), 4 MG SL Q6H PRN for Nausea Review of Systems Constitutional: + fever, No chills Eyes: + worsening of vision, No diplopia ENT: + sore throat, No nasal symptoms Respiratory: + cough, No shortness of breath Cardiovascular: No chest pain Abdomen: + nausea, + vomiting, No diarrhea, No pain Musculoskeletal: No joint pain, No muscle pain Genitourinary - Male: No problem reported Neurologic: + memory loss, No balance problems, No numbness/tingling Integumentary: No new/changing skin lesions, No rash Physical Exam Vital Signs Date Time Temp Pulse Resp B/P Pulse Ox O2 Delivery O2 Flow Rate FiO2 01/03/17 03:09 101 18 177/103 94 Room Air 01/03/17 01:56 107 18 148/78 100 Room Air 01/03/17 01:19 81 18 145/76 95 Room Air 01/03/17 00:02 90 18 146/76 97 Room Air 01/02/17 22:30 95 18 156/89 95 Room Air 01/02/17 22:13 94 Room Air 01/02/17 21:48 108 18 153/102 97 Room Air 01/02/17 21:17 37.5 112 20 160/99 96 Room Air General Appearance: WD/WN, no apparent distress Head: normocephalic, atraumatic Eyes: normal inspection, PERRL, EOMI, sclerae normal ENT: normal ENT inspection, TMs normal, + pharyngeal erythema, + pertinent finding (enlarged tonsils with crypts bilaterally) Neck: supple, no adenopathy, no JVD Respiratory/Chest: lungs clear, normal breath sounds, no respiratory distress, no accessory muscle use Cardiovascular: regular rate, rhythm, no edema, no gallop, no murmur Abdomen/GI: normal bowel sounds, non tender, soft, no organomegaly Extremities/Musculoskelatal: normal inspection Neurologic/Psych: 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, no motor/sensory deficits, alert, normal mood/affect, oriented x 3, + abnormal reflexes (could not elicit BR or knee reflexes when attempted) Skin: normal color, warm/dry, no rash Diagnostics Laboratory Results Results Past 24 Hours Test 01/02/17 22:03 01/02/17 22:20 01/02/17 22:23 01/02/17 23:59 Range/Units Influenza Type A Antigen POS for Influ A NEG Influenza Type B Antigen Neg for Influ B NEG White Blood Count 2.81 4.8-10.8 K/uL Red Blood Count 4.53 4.7-6.1 M/uL Hemoglobin 14.3 14.0-18.0 g/dL Hematocrit 39.0 42-52 % Mean Corpuscular Volume 86.1 80-100 fL Mean Corpuscular Hemoglobin 31.6 25-34 pg Mean Corpuscular Hemoglobin Concent 36.7 32-36 g/dl Platelet Count 253 130-400 K/uL Mean Platelet Volume 10.1 7.4-10.4 fL Neutrophils (%) (Auto) 64.7 % Lymphocytes (%) (Auto) 12.8 % Monocytes (%) (Auto) 22.1 % Eosinophils (%) (Auto) 0.0 % Basophils (%) (Auto) 0.4 % Neutrophils # (Auto) 1.82 1.4-6.5 K/uL Lymphocytes # (Auto) 0.36 1.2-3.4 K/uL Monocytes # (Auto) 0.62 0.11-0.59 K/uL Eosinophils # (Auto) 0.00 0-0.5 K/uL Basophils # (Auto) 0.01 0-0.2 K/uL RDW Standard Deviation 39.6 36.4-46.3 fL RDW Coefficient of Variation 12.5 11.5-14.5 % Immature Granulocyte % (Auto) 0.0 % Immature Granulocyte # (Auto) 0.00 0.00-0.02 K/uL Prothrombin Time 11.6 9.0-12.0 SECONDS Prothromb Time International Ratio 1.1 0.9-1.1 Activated Partial Thromboplast Time 28.9 21.0-31.0 SECONDS Partial Thromboplastin Ratio 1.1 Sodium Level 135 136-145 mmol/L Potassium Level 3.6 3.5-5.1 mmol/L Chloride Level 103 98-107 mmol/L Carbon Dioxide Level 25 21-32 mmol/L Anion Gap 7.0 3-11 mmol/L Blood Urea Nitrogen 11 7-18 mg/dl Creatinine 1.00 0.60-1.40 mg/dl Est Creatinine Clear Calc Drug Dose 107.7 ml/min Estimated GFR () 110.9 Estimated GFR (Non- 95.7 BUN/Creatinine Ratio 10.6 10-20 Random Glucose 94 70-99 mg/dl Calcium Level 8.8 8.5-10.1 mg/dl Total Bilirubin 0.4 0.2-1 mg/dl Aspartate Amino Transf (AST/SGOT) 19 15-37 U/L Alanine Aminotransferase (ALT/SGPT) 15 12-78 U/L Alkaline Phosphatase 65 45-117 U/L Total Protein 7.6 6.4-8.2 gm/dl Albumin 4.2 3.4-5.0 gm/dl Globulin 3.4 2.5-4.0 gm/dl Albumin/Globulin Ratio 1.2 0.9-2 Lyme Disease IgG Antibody NEG NEG Lyme Disease IgM Antibody NEG NEG Bedside Lactic Acid Venous 0.64 0.90-1.70 mmol/L CSF Color COLORLESS CSF Appearance CLEAR CSF WBC 2 0-5 /uL CSF RBC 0 0 /uL CSF Xanthrochromic NO XANTHOCHROMIA CSF Cell Count Tube # 4 CSF Chemistry Tube # 2 CSF Glucose 55 40-70 mg/dl CSF Total Protein 45.1 15.0-45.0 mg/dl Microbiology Results 01/02/17 Blood Culture, Received Pending 01/02/17 Blood Culture, Received Pending 01/02/17 Gram Stain - Preliminary, Resulted 01/02/17 CSF Culture, Resulted Pending Diagnostic Radiology PORT CXR: No acute process. HEAD CT: no acute intracranial process (preliminary read) CXR normal Impression Assessment and Plan 36 yoM with h/o migraine with aura presents with intractable headache and is being admitted for pain control. 1. Headache 2/2 classic migraine with aura as it is his normal distribution. Head CT negative for intracranial process. Neuro exam is benign without deficits. Pt on Botox as an outpatient. Will cont IVF in light of vomiting and cont supportive care efforts to control his pain. Cont preventive medications. 2. Influenza-cont Tamiflu started in ER 3. Vomiting-likely 2/2 pain per patient but may also be from flu. Cont supportive care with IVF and sched Zofran 4. Anxiety-PRN Xanax DVT proph-SCDs/ambulation Nutrition-reg diet Dispo to floor Full Code Brynn Richter DO [facility] Hospitalist Level of Care Med/Surg Resuscitation Status FULL RESUSCITATION VTE Prophylaxis VTE Risk Assessment Done? Y/N: Yes Risk Level: Low Given or contraindicated: Treatment not indicated Social Service Consult None Apply
[2017-01-03] MEDS ORDERED: IV FLUIDS COMPLETED PRN (04:30)
[2017-01-03] MEDS: SODIUM CHLORIDE 0.9% 1000ML 1,000 ML IV SCH ×2 (05:04→10:40)
--- NOTE | 2017-01-03 06:34 | DIAGNOSTIC IMAGING REPORT ---
CT OF THE HEAD WITHOUT CONTRAST CLINICAL HISTORY: Headache and fever. COMPARISON STUDY: Head CT February 28, 2016. CT DOSE: 537.48 mGy.cm TECHNIQUE: Helical axial images of the head were obtained without IV contrast. Automated exposure control was utilized for the study. FINDINGS: No acute intracranial hemorrhage, midline shift or mass effect is present. Ventricular system is normal. Basilar cisterns are patent. No extra-axial collections are present. Muniz-white differentiation is maintained. There are no findings to suggest acute dural sinus thrombosis or acute territorial infarct. There are no calvarial abnormalities. There is no significant sinus opacification. There is minimal mucosal thickening of the ethmoid sinuses. Mastoid air cells are clear. IMPRESSION: No acute intracranial findings. Electronically signed by: Ramsey Jaquez M.D. 01/03/2017 6:33 AM Dictated Date/Time: 01/03/2017 6:31 AM
[2017-01-03] MEDS ORDERED: MULTIVITAMIN TAB PO SCH (09:00)
[2017-01-03] MEDS ORDERED: VERAPAMIL HCL 180 MG TABCR PO SCH (09:00)
[2017-01-03] MEDS ORDERED: DOCUSATE SODIUM 100 MG CAP PO SCH (09:00)
[2017-01-03] MEDS ORDERED: MAGNESIUM OXIDE 400 MG TAB PO SCH (09:00)
[2017-01-03] MEDS: OSELTAMIVIR PHOSPHATE 75 MG CAP PO SCH ×2 (09:33→18:30)
[2017-01-03] MEDS ORDERED: METOCLOPRAMIDE HCL INJ 5 MG/ML 2 ML VIAL IV PRN (12:00)
--- NOTE | 2017-01-03 17:36 | Discharge Instructions ---
Discharge Instructions Admission Reason for Admission: Classic Migraine With Aura Discharge Discharge Diagnosis / Problem: Influenza and Migraine Discharge Goals Goal(s): Decrease discomfort Activity Recommendations Activity Limitations: resume your previous activity . Instructions / Follow-Up Instructions / Follow-Up Please follow up with Family Medicine Dr. Gann on January 10 at 11:40am. Current Hospital Diet Patient's current hospital diet: Regular Diet Discharge Diet Recommended Diet: Regular Diet Pending Studies Studies pending at discharge: no Medical Emergencies . Who to Call and When: Medical Emergencies: If at any time you feel your situation is an emergency, please call 911 immediately. . Non-Emergent Contact Non-Emergency issues call your: Primary Care Provider . . "Provider Documentation" section prepared by Charisse Rosen. VTE Core Measure Inpt VTE Proph given/why not?: Treatment not indicated
--- NOTE | 2017-01-03 17:44 | Discharge Summary ---
Discharge Summary Date of Service Jan 03, 2017. Discharge Summary Admission Date: Jan 03, 2017 at 03:10 Discharge Date: Jan 03, 2017 Discharge Disposition: Home Principal Diagnosis: Migraine Secondary Diagnoses/Problems: Influenza Medication Reconciliation Continued Medications: Alprazolam (Alprazolam) 0.5 Mg Tab 0.5 MG PO BID PRN for Panic Attack Baclofen (Baclofen) 10 Mg Tab 10 MG PO TID PRN for Back Pain Doxepin Hcl (Doxepin) 75 Mg Cap 75 MG PO HS Eletriptan Hydrobromide (Relpax) 40 Mg Tab 40 MG PO UD PRN for Migraine TAKE 1 TABLET AT ONSET OF MIGRAINE, MAY REPEAT ONCE AFTER 2 HOURS. IF NEEDED. MAXIMUM 2 DOSES/24 HOURS. Magnesium (Magnesium) 250 Mg Tab 250 MG PO DAILY Multivitamin (Multivitamin) Tab 1 TAB PO DAILY, TAB Ondasetron Odt (Zofran Odt) 4 Mg Tab 4 MG SL Q6H PRN for Nausea, TAB Oseltamivir (Tamiflu) 75 Mg Cap 75 MG PO BID for 5 Days, #10 CAP Verapamil HCl (Verapamil HCl ER) 180 Mg Tabcr 180 MG PO BID Admission Information HPI (per Admitting provider): 36 yoM with long history of migraines with visual aura presents to the ER tonight with intractable migraine for the past several days along with fevers and cough. He was positive for flu and an LP was performed in light of neck pain and his severe headache with fever. CSF studies were normal with a negative gram stain and final culture pending. He reports some white spots in his R eye visual field that are improving. He states the headache in on the right half of his head, and he receives Botox injections regularly for this as an outpatient. He has chronic neck pain from degenerative disc disease but denies any radiculopathy or numbness and tingling at this time, and he is able to ambulate without difficulty. He states his fevers, chills and sore throat for the past two days. His has been ill for 3 weeks. The patient states that he sees Dr. Lombardo for Neurology and he has tried every drug on the market; he states that Imitrex injections make him feel as though he is having a heart attack. After multiple doses of dilaudid in the ER, the patient still has significant pain with some vomiting from the pain. Agreed to admit the patient for pain control. Physical Exam (per Admitting): General Appearance: WD/WN, no apparent distress Head: normocephalic, atraumatic Eyes: normal inspection, PERRL, EOMI, sclerae normal ENT: normal ENT inspection, TMs normal, + pharyngeal erythema, + pertinent finding (enlarged tonsils with crypts bilaterally) Neck: supple, no adenopathy, no JVD Respiratory/Chest: lungs clear, normal breath sounds, no respiratory distress, no accessory muscle use Cardiovascular: regular rate, rhythm, no edema, no gallop, no murmur Abdomen/GI: normal bowel sounds, non tender, soft, no organomegaly Extremities/Musculoskelatal: normal inspection Neurologic/Psych: certified novell engineer II-XII nml as tested, no motor/sensory deficits, alert , normal mood/affect, oriented x 3, + abnormal reflexes (could not elicit BR or knee reflexes when attempted) Skin: normal color, warm/dry, no rash Hospital Course Patient was admitted with intractable migraine. Patient was started on a Dilaudid LEAD JANITOR. Migraine improved. Patient also received anti-emetics as needed. Patient was started on Tamiflu for testing positive for influenza. Patient clinically improved and deemed stable for discharge with Family Medicine follow up. PE on discharge: General- awake; alert; NAD Eyes- EOMI; no scleral icterus Neck- no stridor; trachea midline Lungs- CTA bilaterally; no wheezes/crackles Heart- RRR; no m/r/g Back- no gross abnormalities Extremities- no c/c/e; no deformity Neuro- no gross focal deficits Skin- no appreciable rash or bruise . Total time spent on discharge = This includes examination of the patient, discharge planning, medication reconciliation, and communication with other providers. Discharge Instructions Discharge Instructions Admission Reason for Admission: Classic Migraine With Aura Discharge Discharge Diagnosis / Problem: Influenza and Migraine Discharge Goals Goal(s): Decrease discomfort Activity Recommendations Activity Limitations: resume your previous activity . Instructions / Follow-Up Instructions / Follow-Up Please follow up with Family Medicine Dr. Gann on January 10 at 11:40am. Current Hospital Diet Patient's current hospital diet: Regular Diet Discharge Diet Recommended Diet: Regular Diet Pending Studies Studies pending at discharge: no Medical Emergencies . Who to Call and When: Medical Emergencies: If at any time you feel your situation is an emergency, please call 911 immediately. . Non-Emergent Contact Non-Emergency issues call your: Primary Care Provider . . "Provider Documentation" section prepared by Charisse Rosen. VTE Core Measure Inpt VTE Proph given/why not?: Treatment not indicated Additional Copies To Lola Gann D.O. Rine,Fabienne CASTRO
[2017-01-03] MEDS ORDERED: ONDA4TAB10 SL (17:47)
[2017-01-03] MEDS ORDERED: DOXEPIN HCL 75 MG CAP PO SCH (21:00)
[2017-01-04 22:34] LABS: LYME DNA PCR CSF OR SYNOVIAL Not detected (Not Detected); LYME DNA SOURCE CSF
--- NOTE | 2017-01-07 21:29 | Progress Note ---
Progress Note Date of Service Jan 07, 2017. Progress Note Received page regarding 1 of 2 blood culture bottles from 01/02 with gram positive bacilli. This is likely a skin contaminant. Will follow culture to completion. No indication for treatment at this time.
== END 2017-01-03 19:37 | disposition home or self-care (01) ==
LOC: ENRESERVTM → ENRESERVDT → C.EDB 21:10 → C.MED 01-03 03:10 → EDBEDREQ 01-03 03:34
PROVIDERS: ADMIT Hospitalist; ATTEND Internal Medicine
DX: G43.909 Migraine, unspecified, not intractable, without status migrainosus (principal); J11.1 Influenza due to unidentified influenza virus with other respiratory manifestations; K21.9 Gastro-esophageal reflux disease without esophagitis; Z83.3 Family history of diabetes mellitus; Z82.49 Family history of ischemic heart disease and other diseases of the circulatory system

== ENCOUNTER 2017-04-25 01:08 | Emergency (ER) | payer OTHER ==
[~2017-04-25] VITALS: Ht 180.3 cm; Wt 81.3 kg
[~2017-04-25 01:08] MED LIST changes: +ELET40TA PO; +LRS10 PO; -MAGN250T3 PO; +MAGN250T9 PO; +ONDA4TAB10 SL
[2017-04-25 01:10] VITALS: TEMP 36.7; Ht 180.3 cm; Wt 81.3 kg
[2017-04-25] MEDS ORDERED: HYDROmorphone INJ 1 MG/ML SYR IV STA ×2 (01:28→03:28)
[2017-04-25] MEDS ORDERED: MAGNESIUM SULFATE 1GM / D5W 1 GM BAG IV STA (01:28)
[2017-04-25] MEDS ORDERED: ONDANSETRON INJ 2 MG/ML 2 ML VIAL IV STA (01:28)
[2017-04-25] MEDS ORDERED: KETOROLAC TROMETHAMINE 30 MG/ML VIAL IV STA (01:28)
[2017-04-25] MEDS ORDERED: SODIUM CHLORIDE 0.9% 1000ML 1,000 ML IV ONE (01:30)
[2017-04-25] MEDS ORDERED: DiphenhydrAMINE HCL 50 MG/ML VIAL IV STA (03:28)
[2017-04-25 04:25] VITALS: BP 148/77; PULSE 61; O2SAT 99
--- NOTE | 2017-04-25 05:27 | EMERGENCY ROOM VISIT NOTE ---
ED Visit Note First contact with patient: 01:17 CHIEF COMPLAINT: Migraine headache HISTORY OF PRESENT ILLNESS: This 36-year-old male patient presented to the emergency department with a gradual onset of a severe generalized headache that started worsening over the past one day. He has had symptoms for the past 2 or 3 days. The patient states the migraine is similar to their typical migraines. There has been associated photophobia, phonophobia, nausea and vomiting. The patient denies fever or chills recently, and there is no weakness or numbness of the extremities. There is no difficulty with speech or vision. No trauma to the head and no neck pain. The pain is severe, constant, and it is slowly increasing in severity. The patient rates the pain as dull and 10/10. The patient has taken [id number] medication without relief. This is not the worst headache of the life and is similar to previous migraines. Previous imaging studies of the brain have been normal. He has been receiving Botox treatments as an outpatient, and states this has significantly improved his frequency of migraines. REVIEW OF SYSTEMS: A review of systems was performed with positives and pertinent negatives listed in the history of present illness. All other systems were reviewed and are negative. ALLERGIES: See EMR MEDICATIONS: See EMR PMH: Chronic migraine SOCIAL HISTORY: Lives locally with family PHYSICAL EXAM: Vital Signs: Reviewed Nurse's notes, vital signs stable. GENERAL: White male, who appears in pain, but non toxic in appearance and in no acute distress. MENTAL STATUS: Alert, oriented, and coherent. HEENT: Normocephalic. PERRLA. EOMI. Nares patent without nuchal rigidity. Tympanic membranes pearly sandoval without erythema or effusion bilaterally. Mucous membranes moist. NECK: Supple, no nuchal rigidity, nontender, no lymphadenopathy. HEART: Regular rhythm and normal rate without murmurs, ectopy, gallops, or rubs. LUNGS: Clear to auscultation bilaterally without wheezes, rales or rhonchi. No dullness to percussion. No accessory muscle use. No retractions. SKIN: Normal. NEUROLOGICAL: Pupils are round, equal and react to light. The optic fundi are normal and the discs are flat. The patient moves all extremities well and the gait is normal. EMERGENCY DEPARTMENT COURSE: Physical exam and history were performed. Nursing notes and EMR were reviewed. The patient has a history of long-standing migraine headaches and has been seen frequently in the past for this. His frequency of visits has decreased upon starting Botox as an outpatient, and he has been doing well. He does not have signs of meningitis or encephalitis. His symptoms are typical of his normal migraine. IV access was established and the patient was medicated with IV saline, IV magnesium, IV Dilaudid, IV Toradol, IV Zofran, and IV Benadryl. He remained in stable condition for greater than 2 hours here in the emergency department, and did feel well for discharge home. The patient will need to follow-up with his PCP for further care and management. The differential diagnosis includes acute intracranial bleed, meningitis, encephalitis, mass or mass effect, sinusitis, infection, tumor, headache, temporal arteritis and carbon monoxide exposure, and migraine. The patient was discharged home in stable condition with his driving. Problem List Medical Problems: (1) GERD (gastroesophageal reflux disease) Status: Chronic (2) History of migraine Status: Chronic (3) History of orthopedic surgery Status: Chronic (4) History of stomach ulcers Status: Resolved (5) Intractable abdominal pain Status: Chronic (6) Multiple fractures Status: Resolved (7) PVC (premature ventricular contraction) Status: Chronic Surgical Problems: (1) History of orthopedic surgery Status: Resolved Current/Historical Medications Scheduled Doxepin Hcl (Doxepin), 75 MG PO HS Magnesium (Magnesium), 250 MG PO DAILY Multivitamin (Multivitamin), 1 TAB PO DAILY Verapamil HCl (Verapamil HCl ER), 180 MG PO BID Scheduled PRN Alprazolam (Alprazolam), 0.5 MG PO BID PRN for Panic Attack Baclofen (Baclofen), 10 MG PO TID PRN for Back Pain Eletriptan Hydrobromide (Relpax), 40 MG PO UD PRN for Migraine Ondasetron Odt (Zofran Odt), 4 MG SL Q6H PRN for Nausea Allergies Coded Allergies: Tramadol (Unverified Allergy, Unknown, headache, 01/02/17) Prochlorperazine (Verified Adverse Reaction, Unknown, "MAKES ME FREAK OUT ", 01/02/17) Vital Signs Date Time Temp Pulse Resp B/P (MAP) Pulse Ox O2 Delivery O2 Flow Rate FiO2 04/25/17 04:25 61 16 148/77 99 Room Air 04/25/17 02:28 69 18 150/96 100 Room Air 04/25/17 01:10 36.7 103 20 137/77 98 Room Air Medications Administered Medications (Trade) Dose Ordered Sig/Clay Route Start Time Stop Time Status Last Admin Dose Admin Sodium Chloride 1,000 ml @ 999 mls/hr Q1H1M ONCE IV 04/25/17 01:30 04/25/17 02:30 DC 04/25/17 02:04 999 MLS/HR Hydromorphone HCl (Dilaudid Inj) 2 mg NOW STAT IV 04/25/17 01:28 04/25/17 01:30 DC 04/25/17 02:10 2 MG Ketorolac Tromethamine (Toradol Inj) 30 mg NOW STAT IV 04/25/17 01:28 04/25/17 01:30 DC 04/25/17 02:11 30 MG Ondansetron HCl (Zofran Inj) 4 mg NOW STAT IV 04/25/17 01:28 04/25/17 01:30 DC 04/25/17 02:05 4 MG Magnesium Sulfate (Magnesium Sulfate) 1 gm NOW STAT IV 04/25/17 01:28 04/25/17 01:30 DC 04/25/17 02:11 1 GM Diphenhydramine HCl (Benadryl Inj) 25 mg NOW STAT IV 04/25/17 03:28 04/25/17 03:29 DC 04/25/17 03:28 25 MG Hydromorphone HCl (Dilaudid Inj) 1 mg NOW STAT IV 04/25/17 03:28 04/25/17 03:29 DC 04/25/17 03:28 1 MG Departure Information Impression Primary Impression: Migraine Dispostion Home / Self-Care Condition GOOD Referrals Fabienne Fuller PA-C (PCP) Forms HOME CARE DOCUMENTATION FORM, IMPORTANT VISIT INFORMATION Patient Instructions My [facility] Additional Instructions You were seen and evaluated today on an emergency basis only. This is not a substitute for, or an effort to provide, complete comprehensive medical care. It is not possible to recognize and treat all injuries or illnesses in a single emergency department visit. For this reason it is recommended that you followup with your primary care physician or neurologist this week for ongoing care and evaluation. DO NOT drive, drink alcohol, operate machinery, or perform dangerous activities today. You were given medications in the ER that can affect your ability to safely function or operate a vehicle. Rest today in a quiet, peaceful, dark environment and get a full 8-10 hrs of sleep tonight. Avoid loud noises, smoke/smoking, alcohol, bright lights, stress, or physical exertion today to minimize the chance the headache may return. Continue current medications. Ibuprofen(Motrin, Advil) may be used for fever or pain. Use 600mg every six hours as needed. Take with food. Avoid using more than 2400mg in a 24 hour period. Do not use 2400mg per day for more than three consecutive days without physician direction. Prolonged inappropriate use can lead to stomach upset or ulcers. (AND/OR) Acetaminophen(Tylenol) may be used for fever or pain. Use 1000mg every six hours as needed. Avoid using more than 4000mg in a 24 hour period. Return to the ER for passing out, worsening headache, vision problems, neck stiffness/pain, fevers, vomiting, worsening of your condition, or as needed.
== END 2017-04-25 04:30 | disposition home or self-care (01) ==
LOC: C.EDB 01:09
DX: G43.909 Migraine, unspecified, not intractable, without status migrainosus (principal); K21.9 Gastro-esophageal reflux disease without esophagitis; Z87.11 Personal history of peptic ulcer disease; Z87.81 Personal history of (healed) traumatic fracture; Z98.890 Other specified postprocedural states; Z79.899 Other long term (current) drug therapy; Z88.8 Allergy status to other drugs, medicaments and biological substances

== ENCOUNTER 2017-06-21 01:12 | Emergency (ER) | payer OTHER ==
[~2017-06-21] VITALS: Ht 180.3 cm; Wt 81.1 kg
[2017-06-21 01:15] VITALS: BP 157/85; TEMP 36.9; Ht 180.3 cm; Wt 81.1 kg
[2017-06-21] MEDS ORDERED: SODIUM CHLORIDE 0.9% 1000ML 1,000 ML IV STA (01:28)
[2017-06-21] MEDS ORDERED: PROMETHAZINE HCL INJ 25 MG in SODIUM CHLORIDE 0.9% 50ML 50 ML IV STA (01:28)
[2017-06-21] MEDS ORDERED: KETOROLAC TROMETHAMINE 30 MG/ML VIAL IV STA (01:28)
[2017-06-21] MEDS ORDERED: HYDROmorphone INJ 2 MG/ML SYR/VIAL IV STA (01:28)
[2017-06-21] MEDS ORDERED: DiphenhydrAMINE HCL 50 MG/ML VIAL IV STA (01:28)
[2017-06-21] MEDS ORDERED: MAGNESIUM SULFATE 1GM / D5W 1 GM BAG IV STA (01:28)
[2017-06-21] MEDS ORDERED: HYDROmorphone INJ 1 MG/ML SYR ONE (01:43)
[2017-06-21] MEDS ORDERED: ONDA4TAB10 SL (02:08)
[2017-06-21] MEDS ORDERED: HYDROmorphone INJ 1 MG/ML SYR IV STA (02:35)
[2017-06-21 03:00] VITALS: PULSE 72; O2SAT 98
--- NOTE | 2017-06-21 03:20 | EMERGENCY ROOM VISIT NOTE ---
History First contact with patient: :19 Chief Complaint: HEADACHE Stated Complaint: MIGRAINE History of Present Illness The patient is a 36 year old male who presents to the Emergency Room with complaints of migraine for the past 2 days described as throbbing, ranging in severity currently 8 out of 10 throughout the temporal region similar to prior. Patient receives Botox injection. He follows with Dr. Lombardo. Headache is similar to prior. Patient denies sudden onset of headache, fever, chills, neck stiffness, numbness, tingling, weakness, chest pain, dyspnea or any other medical complaints. Patient is well-known to this ER for frequent migraine visits. Review of Systems See HPI for pertinent positives & negatives. A total of 10 systems reviewed and were otherwise negative. Past Medical/Surgical History Medical Problems: (1) Classic migraine with aura (2) GERD (gastroesophageal reflux disease) (3) History of migraine (4) History of orthopedic surgery (5) History of stomach ulcers (6) Intractable abdominal pain (7) Multiple fractures (8) PVC (premature ventricular contraction) Surgical Problems: (1) History of orthopedic surgery Family History Diabetes mellitus FH: cancer Gallbladder disease Hypertension Social History Smoking Status: Never Smoker Alcohol Use: none Drug Use: none Marital Status: , in relationship Housing Status: lives with significant other Occupation Status: employed Current/Historical Medications Scheduled Doxepin Hcl (Doxepin), 75 MG PO HS Magnesium (Magnesium), 250 MG PO DAILY Multivitamin (Multivitamin), 1 TAB PO DAILY Verapamil HCl (Verapamil HCl ER), 180 MG PO BID Scheduled PRN Alprazolam (Alprazolam), 0.5 MG PO BID PRN for Panic Attack Baclofen (Baclofen), 10 MG PO TID PRN for Back Pain Eletriptan Hydrobromide (Relpax), 40 MG PO UD PRN for Migraine Ondasetron Odt (Zofran Odt), 4 MG SL Q6H PRN for Nausea or Vomiting Physical Exam Vital Signs Date Time Temp Pulse Resp B/P (MAP) Pulse Ox O2 Delivery O2 Flow Rate FiO2 06/21/17 03:00 72 17 98 Room Air 06/21/17 01:15 36.9 99 20 157/85 99 Room Air Physical Exam VITALS: Vitals are noted on the nurse's note and reviewed by myself. Vital signs mildly hypertensive. GENERAL: Pleasant male, in no acute distress, nondiaphoretic, well-developed well-nourished. SKIN: The skin was without rashes, erythema, edema, or bruising. There is no tenting of the skin. Capillary reflex less than 2 seconds. HEAD: Normocephalic atraumatic. EARS: External auditory canals clear, tympanic membranes pearly sandoval without erythema or effusion bilaterally. EYES: Pupils equal round and reactive to light and accommodation. Conjunctivae without injection, sclerae without icterus. Extraocular movements intact. NOSE: Patent, turbinates without inflammation or discharge. No sinus tenderness. MOUTH: Mucous membranes moist. Pharynx without erythema or exudate. Uvula midline. Airway patent. Tongue does not deviate. NECK: Supple without nuchal rigidity. No lymphadenopathy. No thyromegaly. Cervical spine is nontender. No JVD. HEART: Regular rate and rhythm without murmurs gallops or rubs. LUNGS: Clear to auscultation bilaterally without wheezes, rales or rhonchi. No dullness to percussion. No retractions or accessory muscle use. ABDOMEN: Positive bowel sounds x 4. Normal tympanic percussion. Soft, nontender, without masses or organomegaly. Tucker sign negative. No guarding or rebound tenderness. MUSCULOSKELETAL: No muscle atrophy, erythema, or edema noted. NEURO: Patient was alert and oriented to person place and time. Normal sensation to light and sharp touch. No focal neurological deficits. Cranial nerves II through XII grossly intact. No pronator drift. Cerebellar exam intact Medical Decision & Procedures Medications Administered Medications (Trade) Dose Ordered Sig/Clay Route Start Time Stop Time Status Last Admin Dose Admin Ketorolac Tromethamine (Toradol Inj) 30 mg NOW STAT IV 06/21/17 01:28 06/21/17 01:34 DC 06/21/17 01:49 30 MG Magnesium Sulfate (Magnesium Sulfate) 1 gm NOW STAT IV 06/21/17 01:28 06/21/17 01:34 DC 06/21/17 01:50 1 GM Promethazine HCl 25 mg/Sodium Chloride 51 ml @ 204 mls/hr NOW STAT IV 06/21/17 01:28 06/21/17 01:42 DC 06/21/17 02:01 204 MLS/HR Diphenhydramine HCl (Benadryl Inj) 25 mg NOW STAT IV 06/21/17 01:28 06/21/17 01:34 DC 06/21/17 01:49 25 MG Sodium Chloride 1,000 ml @ 999 mls/hr Q1H1M STAT IV 06/21/17 01:28 06/21/17 02:28 DC 06/21/17 01:50 999 MLS/HR Hydromorphone HCl (Dilaudid Inj) 1 mg STK-MED ONCE .ROUTE 06/21/17 01:43 06/21/17 01:44 DC 06/21/17 01:49 1 MG Hydromorphone HCl (Dilaudid Inj) 1 mg NOW STAT IV 06/21/17 02:35 06/21/17 02:36 DC 06/21/17 02:56 1 MG ED Course Prior records/ancillary studies reviewed. Additional history obtained from family. Triage Nursing notes reviewed. The patient's history was concerning for headache. Differential diagnosis: Etiologies such as migraine headache, meningitis, sinusitis, CO exposure, ICH, SAH, infection, tumor, headache, sinus thrombosis, arterial dissection, as well as others were entertained. Physical examination findings: As above. Non-focal. ER treatment provided: Dilaudid, magnesium, Toradol per patient standard protocol On reassessment the patient felt better. Diagnostics interpreted by me: Deferred This appears to be consistent with migraine. Patient felt much better after being medicated as above. He was neurovascularly and neurologically intact. No deficits on exam. He was advised to follow-up with his neurologist in a few days or here in the ER sooner for headache, fevers, weakness, neck stiffness, worsening signs or symptoms or as needed.. By the evaluation outlined above emergent etiologies such as meningitis, sinusitis, CO exposure, ICH, SAH, infection, temporal arteritis, tumor, sinus thrombosis, arterial dissection, as well as others were deemed relatively unlikely. The pt informed about the findings as listed above. All questions were answered and pleased with the treatment. Return instructions were outlined and the patient was discharged in stable condition. Referral: The patient was referred back to their primary care physician and/or neurologist for follow-up in 2 to 3 days for a recheck of the current condition. Medical Decision As above Medication Reconcilliation Current Medication List: was personally reviewed by me Blood Pressure Screening Patient's blood pressure: Elevated blood pressure Blood pressure disposition: Elevated BP felt to be situational Impression Primary Impression: Migraine Departure Information Dispostion Home / Self-Care Condition GOOD Referrals Fabienne Fuller PA-C (PCP) Patient Instructions My [facility] Additional Instructions DO NOT drive, drink alcohol, operate machinery, or perform dangerous activities today. You were given medications in the ER that can affect your ability to safely function or operate a vehicle. Rest today in a quiet, peaceful, dark environment and get a full 8-10 hrs of sleep tonight. Avoid loud noises, smoke/smoking, alcohol, bright lights, stress, or physical exertion today to minimize the chance the headache may return. Continue current medications. Ibuprofen(Motrin, Advil) may be used for fever or pain. Use 600mg every six hours as needed. Take with food. Avoid using more than 2400mg in a 24 hour period. Do not use 2400mg per day for more than three consecutive days without physician direction. Prolonged inappropriate use can lead to stomach upset or ulcers. (AND/OR) Acetaminophen(Tylenol) may be used for fever or pain. Use 1000mg every six hours as needed. Avoid using more than 3000mg in a 24 hour period. Return to the ER for passing out, worsening headache, vision problems, neck stiffness/pain, fevers, vomiting, worsening of your condition, or as needed. Follow up with your primary physician and/or a neurologist in 2-3 days for a recheck of your current condition. Problem Qualifiers Primary Impression: Migraine Migraine type: without aura Status migrainosus presence: without status migrainosus Intractability: not intractable Qualified Codes: G43.009 - Migraine without aura, not intractable, without status migrainosus
== END 2017-06-21 03:27 | disposition home or self-care (01) ==
LOC: C.EDB 01:13
DX: G43.909 Migraine, unspecified, not intractable, without status migrainosus (principal); K21.9 Gastro-esophageal reflux disease without esophagitis; Z87.11 Personal history of peptic ulcer disease; Z87.81 Personal history of (healed) traumatic fracture; Z98.890 Other specified postprocedural states; Z79.899 Other long term (current) drug therapy; Z83.3 Family history of diabetes mellitus; Z80.9 Family history of malignant neoplasm, unspecified; Z83.79 Family history of other diseases of the digestive system; Z82.49 Family history of ischemic heart disease and other diseases of the circulatory system

== ENCOUNTER 2017-10-09 00:53 | Emergency (ER) | payer OTHER ==
[~2017-10-09] VITALS: Ht 180.3 cm; Wt 81.2 kg
[2017-10-09 00:55] VITALS: TEMP 36.4; Ht 180.3 cm; Wt 81.2 kg
[2017-10-09] MEDS ORDERED: KETOROLAC TROMETHAMINE 30 MG/ML VIAL IV STA (01:03)
[2017-10-09] MEDS ORDERED: DiphenhydrAMINE HCL 50 MG/ML VIAL IV STA (01:03)
[2017-10-09] MEDS ORDERED: METOCLOPRAMIDE HCL INJ 5 MG/ML 2 ML VIAL IV STA (01:03)
[2017-10-09] MEDS ORDERED: MAGNESIUM SULFATE 1GM / D5W 1 GM BAG IV STA (01:03)
[2017-10-09] MEDS ORDERED: DEXAMETHASONE SOD INJ 4 MG/ML VIAL IV STA (01:03)
[2017-10-09] MEDS ORDERED: SODIUM CHLORIDE 0.9% 500ML 500 ML IV STA (01:43)
--- NOTE | 2017-10-09 01:55 | EMERGENCY ROOM VISIT NOTE ---
History Report prepared by Delma: Katy Smith Under the Supervision of: Dr. Dallas Aguero M.D. First contact with patient: 00:56 Chief Complaint: HEADACHE Stated Complaint: MIGRAINE History of Present Illness The patient is a 36 year old white male with a past medical history of migraines and GERD who presents to the ED with a cc of a constant of a headache beginning four days ago. He notes that he recently had Botox and usually has headaches 3 weeks before and after the procedure. He states that this feels like his normal migraine. He reports that he took Excedrin and Zofran with no relief. He notes that light and sound make the pain worse. Positive vomiting and neck pain. Negative recent antibiotic use, cough, chills, fever, and recent falls. Source of History: patient Onset: four days Position: head Quality: other (similar to other migraines) Timing: constant Modifying Factors (Worsening): other (light and sound) Associated Symptoms: + neck pain, + vomiting, No fevers, No chills, No cough Note: The patient denies recent antibiotic use and recent falls. Review of Systems See HPI for pertinent positives and negatives. A total of ten systems were reviewed and were otherwise negative. Past Medical & Surgical Medical Problems: (1) Classic migraine with aura (2) GERD (gastroesophageal reflux disease) (3) History of migraine (4) History of orthopedic surgery (5) History of stomach ulcers (6) Intractable abdominal pain (7) Multiple fractures (8) PVC (premature ventricular contraction) Surgical Problems: (1) History of orthopedic surgery Family History Diabetes mellitus FH: cancer Gallbladder disease Hypertension Social History Smoking Status: Never Smoker Alcohol Use: none Drug Use: none Marital Status: in relationship Housing Status: lives with significant other Occupation Status: employed Current/Historical Medications Scheduled Doxepin Hcl (Doxepin), 75 MG PO HS Magnesium (Magnesium), 250 MG PO DAILY Multivitamin (Multivitamin), 1 TAB PO DAILY Verapamil HCl (Verapamil HCl ER), 180 MG PO BID Scheduled PRN Alprazolam (Alprazolam), 0.5 MG PO BID PRN for Panic Attack Baclofen (Baclofen), 10 MG PO TID PRN for Back Pain Eletriptan Hydrobromide (Relpax), 40 MG PO UD PRN for Migraine Ondasetron Odt (Zofran Odt), 4 MG SL Q6H PRN for Nausea or Vomiting Allergies Coded Allergies: Tramadol (Verified Allergy, Unknown, headache, 10/09/17) Prochlorperazine (Verified Adverse Reaction, Unknown, "MAKES ME FREAK OUT ", 10/09/17) Physical Exam Vital Signs Date Time Temp Pulse Resp B/P (MAP) Pulse Ox O2 Delivery O2 Flow Rate FiO2 10/09/17 00:55 36.4 101 20 153/88 98 Room Air Physical Exam GENERAL: Awake, alert, well-appearing, NAD HENT: Normocephalic, atraumatic. EYES: Normal conjunctiva. Sclera non-icteric. NECK: Supple. No nuchal rigidity. FROM. RESPIRATORY: CTAB, no rhonchi, wheezing, crackles CARDIAC: RRR, no MRG ABDOMEN: Soft, NTND, BS+ MSK: No chest wall TTP, no LE edema NEURO: CN 2-12 intact, 5/5 upper and lower extremity strength, no dysmetria, no drift, good finger to nose, no sensory deficits. SKIN: No rash or jaundice noted. Medical Decision & Procedures Medications Administered Medications (Trade) Dose Ordered Sig/Clay Route Start Time Stop Time Status Last Admin Dose Admin Metoclopramide HCl (Reglan Inj) 10 mg NOW STAT IV 10/09/17 01:03 10/09/17 01:05 DC 10/09/17 01:28 10 MG Ketorolac Tromethamine (Toradol Inj) 30 mg NOW STAT IV 10/09/17 01:03 10/09/17 01:05 DC 10/09/17 01:28 30 MG Diphenhydramine HCl (Benadryl Inj) 25 mg NOW STAT IV 10/09/17 01:03 10/09/17 01:05 DC 10/09/17 01:27 25 MG Dexamethasone Sodium Phosphate (Decadron Inj) 10 mg NOW STAT IV 10/09/17 01:03 10/09/17 01:05 DC 10/09/17 01:28 10 MG Magnesium Sulfate (Magnesium Sulfate) 1 gm NOW STAT IV 10/09/17 01:03 10/09/17 01:05 DC 10/09/17 01:29 1 GM Sodium Chloride 500 ml @ 999 mls/hr Q31M STAT IV 10/09/17 01:43 11/29/17 02:13 DC 10/09/17 01:43 999 MLS/HR Butalbital/ Aspirin/Caffeine (Fiorinal Tab/ CAP) 2 tab Q4H ONCE PO 10/09/17 02:00 10/09/17 02:01 DC 10/09/17 02:00 2 TAB Valproate Sodium 500 mg/Dextrose 55 ml @ 55 mls/hr ONE STAT IV 10/09/17 01:56 10/09/17 02:55 10/09/17 01:56 55 MLS/HR Hydromorphone HCl (Dilaudid Inj) 1 mg NOW STAT IV 10/09/17 02:12 10/09/17 02:13 DC 10/09/17 02:12 1 MG ED Course 0059: The patient was evaluated in room B4B. A complete history and physical exam was performed. 0153: I reevaluated the patient and he doesn't feel any better. 0233: I reevaluated the patient. Discussed results and discharge instructions: He verbalized understanding and agreement. The patient is ready for discharge. Medical Decision The patient is a 36 year old white male with a past medical history of migraines and GERD who presents to the ED with a cc of a constant of a headache beginning four days ago. Etiologies such as migraine headache, meningitis, sinusitis, CO exposure, ICH, SAH, infection, tumor, headache, sinus thrombosis, arterial dissection, as well as others were entertained. Patient was seen and evaluated the bedside. Patient does have a prior history of migraines and routinely takes abortive medications in addition to over-the- counter medicines. Patient has had Botox procedures where he gets intradermal injections. Patient states he's been having a migraine since Saturday. Patient states that this is typical for him. Patient denies any numbness, tingling, or weakness. Patient denies any neck stiffness or URI-type symptoms. Patient denies any recent travel or antibiotic use. On exam patient has a normal neurologic exam. Patient also has no signs of meningismus. Patient was medically treated. A CT of the brain was not obtained as the patient is having his typical symptoms and has a nonfocal neurologic exam. He'll believe this is meningitis given the patient's lack of fever and signs of meningismus. Furthermore, the patient's history is consistent with his prior history of migraines. Patient was given IV fluids and was feeling improved. Patient was able tolerate by mouth. Patient was deemed suitable for outpatient follow-up and treatment. Patient amenable to plan. Patient was given strict follow-up, discharge, and return precautions. All questions were answered. Patient was deemed suitable for outpatient follow-up at this time. Patient agreed with the plan of care and was safely discharged home. Medication Reconcilliation Current Medication List: was personally reviewed by me Blood Pressure Screening Patient's blood pressure: Elevated blood pressure Blood pressure disposition: Elevated BP felt to be situational Impression Primary Impression: Migraine Additional Impression: Headache Scribe Attestation The scribe's documentation has been prepared under my direction and personally reviewed by me in its entirety. I confirm that the note above accurately reflects all work, treatment, procedures, and medical decision making performed by me. Departure Information Dispostion Home / Self-Care Referrals Fabienne Fuller PA-C (PCP) Forms HOME CARE DOCUMENTATION FORM, IMPORTANT VISIT INFORMATION Patient Instructions ED Headache Migraine, [facility] Additional Instructions Please return to the emergency department if you have worsening or recurrent symptoms not amenable to at-home treatment. Please call for a follow-up appointment with her primary care physician. Please take your medications as prescribed. If you have other concerns and/or complaints please feel free to also call your primary care physician's office or return the ED for further evaluation, management, and treatment. You may take 600 mg Ibuprofen every 6 hours as needed for pain with food for no more than 2 consecutive days. You may take tylenol 1000 mg every 6 hours as needed for pain. You may take motrin and tylenol separately or at the same time. Take your medications as prescribed. You have been examined and treated today on an emergency basis only. This is not a substitute for, or an effort to provide, complete comprehensive medical care. It is impossible to recognize and treat all injuries or illnesses in a single emergency department visit. It is therefore important that you follow up closely with [facility], your PCP, and/or your specialist(s). Call as soon as possible for an appointment. Thank you for your time and consideration. I look forward to speaking with you again soon. Please don't hesitate to call us if you have any questions. Problem Qualifiers Primary Impression: Migraine Migraine type: unspecified Status migrainosus presence: without status migrainosus Intractability: not intractable Qualified Codes: G43.909 - Migraine, unspecified, not intractable, without status migrainosus Additional Impression: Headache Headache type: unspecified Headache chronicity pattern: unspecified pattern Intractability: not intractable Qualified Codes: R51 - Headache
[2017-10-09] MEDS ORDERED: VALPROATE SOD IV 500 MG in DEXTROSE 5% 50ML 50 ML IV STA (01:56)
[2017-10-09] MEDS ORDERED: BUTALBITAL/ASA/CAFFEINE 1 EA TAB/CAP PO ONE (02:00)
[2017-10-09] MEDS ORDERED: HYDROmorphone INJ 1 MG/ML SYR IV STA (02:12)
[2017-10-09 02:45] VITALS: BP 148/86; PULSE 73; O2SAT 98
== END 2017-10-09 02:50 | disposition home or self-care (01) ==
LOC: C.EDB 00:54
DX: G43.909 Migraine, unspecified, not intractable, without status migrainosus (principal); Z98.890 Other specified postprocedural states; Z83.3 Family history of diabetes mellitus; Z82.49 Family history of ischemic heart disease and other diseases of the circulatory system